=== PATIENT | male | born 1960 | race Caucasian/White ===

== ENCOUNTER 2025-02-20 09:02 | Emergency (ER) | payer MEDICARE, SELFPAY ==
[2025-02-20 09:04] VITALS: BMI 26.6
--- NOTE | 2025-02-20 09:07 | EKG_ITS ---
[facility] Test Date: 2025-02-20 Pat Name: LE GARCIA Department: Room: - Gender: Male [employer]er T[employer]er: : 1960 Requested By: Roxy Booth Order Number: [id number] Reading MD: Roxy Booth Measurements Intervals [place] Rate: 88 P: 34 RI: 151 QRS: 37 QRSD: 93 T: 18 QT: 340 QTc: 412 Interpretive Statements SINUS RHYTHM WITH OCCASIONAL VENTRICULAR PREMATURE COMPLEXES POSSIBLE RIGHT VENTRICULAR CONDUCTION DELAY [RSR (QR) IN V1/V2] NONSPECIFIC T-WAVE ABNORMALITY Compared to ECG 09/19/2023 15:51:21 Ventricular premature complex(es) now present T-wave abnormality still present /store/S0/[id number]/ecg/[id number].pdf
[2025-02-20 09:27] VITALS: BP 126/79; PULSE 88; RESP 21; TEMP 36.6; O2SAT 96
--- NOTE | 2025-02-20 09:44 | EDNOTE_ITS ---
ED Chest Pain RME/HPI General Chief Complaint: Chest Pain Stated Complaint: CXP/PALITATIONS/ LIGHT HEADED SINCE 0800 TODAY Time Seen by Provider: 02/20/25 09:22 Arrival date/time: 02/20/25 09:02 RME / HPI RME / HPI narrative: 64 year old male with history of [employer] in [place] 08/04 widowmaker, s/p cholecystectomy, s/p cholecystectomy 08/2024 in [place], presents to the ED for evaluation of chest pain today. Pain described as sharp in sensation, rating 6/10 in severity. Accompanied by palpitations and feeling light headed. Reports taking Nitro at 08:30 AM today with little improvement. Current medications in Brilinta and Aspirin 81mg. No other associated symptoms reported, [employer] is located in [place]. Related Data Home Medications ?Medication ?Instructions ?Recorded ?Confirmed irbesartan 75 mg tablet (Avapro) 75 mg PO QDAY 2 07/26/21 Previous Rx's ?Medication ?Instructions ?Recorded tamsulosin 0.4 mg capsule (Flomax) 0.4 mg PO QDAY #7 c aps 07/26/21 Allergies Allergy/AdvReac Type Severity Reaction Status Date / Time No Known Allergies Allergy Verified 02/20/25 09:05 Review of Systems Review of Systems Systems Reviewed: All systems reviewed, normal except as documented Past Medical History Past Medical History CARDIAC: Positive Cardiac Disorders and Hypertension Surgical History SURGICAL: Positive Coronary Stent (X1) Social History SMOKING STATUS: Never smoker ED Exam Narrative Physical exam: GENERAL APPEARANCE: alert and oriented x 4, well-developed, well-nourished, no acute distress HEENT: Normocephalic, atraumatic; pupils equal, round, reactive to light; EOMI; mucous membranes pink, moist; oropharynx clear NECK: Supple LUNGS: CTABL; no wheezes, no rales, no rhonchi HEART: Regular rate, regular rhythm; normal S1, S2; no murmurs ABDOMEN: non distended; normal BS; soft, no tenderness, no guarding, no rebound; no masses, no organomegaly, no hernia EXTREMITIES: atraumatic; no edema NEUROLOGIC: awake; alert and oriented x4; cranial nerves II-XII grossly intact; no focal sensory or motor deficits PSYCHIATRIC: appropriate mood and affect SKIN: warm, dry, normal color; no rashes Course Course Course Narrative: Patient remains clinically stable throughout the emergency department visit. We reviewed all the results, analysis, and treatment plans. Patient is amenable to discharge. Strict return precautions were outlined. Quality Measures none Orders Category Date Time Status Certified Paralegal NOW Care 02/20/25 09:49 Active EKG (ED ONLY) *Do not use* NOW Care 02/20/25 09:07 Completed EKG (ED Only) Stat Exams 02/20/25 09:07 Draft XR chest 1V portable Stat Exams 02/20/25 09:49 Completed B-Type Natriuretic Peptide Stat Lab 02/20/25 09:56 Completed CBC Stat Lab 02/20/25 09:56 Completed Comprehensive Metabolic Panel Stat Lab 02/20/25 09:56 Completed Lipase Stat Lab 02/20/25 09:56 Completed Magnesium Stat Lab 02/20/25 09:56 Completed Partial Thromboplastin Time Stat Lab 02/20/25 09:56 Completed Prothrombin Time with INR Stat Lab 02/20/25 09:56 Completed Troponin I Stat Lab 02/20/25 09:56 Completed Troponin I Stat Lab 02/20/25 12:20 Completed Aspirin Chew Med 02/20/25 09:48 Discontinued 324 mg PO X1 ONE Vital Signs Vital signs: Vital Signs Temperature 97.9 F 02/20/25 09:27 Pulse Rate 88 02/20/25 09:27 Respiratory Rate 21 H 02/20/25 09:27 Blood Pressure 126/79 02/20/25 09:27 Pulse Oximetry (%) 96 02/20/25 09:27 Oxygen Delivery Method Room Air 02/20/25 09:27 Pulse ox is 96% on room air which is adequate. Chest Pain MDM Narrative MDM Narrative:: Kindra Lauren am scribing for and in the presence of Dr. Moseley. Patient data External records reviewed:: [facility] previous records Clinical information provided by:: patient Social determinants that could affect healthcare access:: none Patient has the following chronic illnesses:: [employer] in [place] 08/04 widowmaker, s/p cholecystectomy, s/p cholecystectomy 08/2024 in [place] How is presenting disease/condition affected by chronic disease/condition?: exacerbated by Evaluation data The following diagnostics were reviewed and interpreted by me:: lab results, radiology exam(s) and EKG tracing(s) (EKG @ 11:23 AM. Normal sinus rhythm with occasional PVCs, rate 88, no STEMI. ) Lab and/or radiology exams considered but not ordered:: None Interpretation Summary: Ordering Physician: Roxy Moseley MD Date of Service: 02/20/25 Procedure(s): XR chest 1V portable Accession Number(s): [id number] cc: Johann Carrillo MD; Roxy Moseley MD~ EXAMINATION: AP chest single view TECHNIQUE: AP portable upright chest single view Date and time: February 20, 2025, 1004 hours, comparison September 19, 2023 INDICATIONS: Chest pain beginning 2 days ago. FINDINGS: Normal heart size The lungs are clear. The osseous structures are demineralized IMPRESSION: No active disease Dictated By: Johann Carrillo MD Signed By: <Electronically signed by Johann Carrillo MD in [place]> 02/20/25 1022 Medications / Prescriptions Medications or Prescriptions considered but not ordered:: None Medication administrations:: Medication Administration History Discontinued Medications Aspirin (Aspirin 81 Mg Chew) 324 mg PO X1 ONE Stop: 02/20/25 09:49 Last Admin: 02/20/25 10:08 Dose: 324 mg Documented By: ED See above Consultations Consultation(s) initiated? (list below): No Diagnosis Chest Pain Differential Diagnosis: pneumothorax, stable angina, unstable angina pectoris, atypical chest pain, st elevation myocardial infarction, costochondritis and chest pain Most likely diagnosis given after review of the tests above:: Chest pain Admission Indicated Admission indicated?: not indicated Explain why admission is indicated or not indicated:: With no condition needing emergent intervention, there was no indication for admission. Admission Request Was there a request for admission?: No Disposition Plan Disposition Plan: Discharge Discharge Attestation Discharge Attestation: The patient and all family members were given an opportunity to ask questions and understood the discharge instructions. Discharge instructions specifically effects, indications for sooner follow up or return to the emergency department, and the expected course of current diagnosis. Patient condition: Stable Discharge Plan Plan Patient Disposition: HOME (Self Care) Prescriptions/Referrals Prescriptions/Med Rec: No Action irbesartan [Avapro] 75 mg Tablet 75 mg PO QDAY tamsulosin [Flomax] 0.4 mg capsule 0.4 mg PO QDAY Qty: 7 0RF Referrals: SANDI RENE [Other] - In 1 week Problem List Clinical Impression: Chest pain Patient/Caregiver Discharge Instructions Education Materials: ED Chest Pain, Uncertain Cause Print Language: Danish Stand Alone Forms: Carol Award Info., Patient Portal Info Letter
--- NOTE | 2025-02-20 09:49 | XR_ITS ---
EXAMINATION: AP chest single view TECHNIQUE: AP portable upright chest single view Date and time: February 20, 2025, 1004 hours, comparison September 19, 2023 INDICATIONS: Chest pain beginning 2 days ago. FINDINGS: Normal heart size The lungs are clear. The osseous structures are demineralized IMPRESSION: No active disease
[2025-02-20 10:05] VITALS: PULSE 86
--- NOTE | 2025-02-20 10:05 | PC.NURSE ---
Pt. here from home to room 12, pt.'s daughter is bedside, pt. states he drove 800 miles yesterday and yesterday started having chest pain, pt. states he took a Nitro because he thought it would help, pt. states it did not. Pt. states he did drink a lot of coffee yesterday. Pt. states he has had a heart attack.
[2025-02-20] MEDS: ASPIRIN 81 MG CHEW 324 MG PO (10:08)
[2025-02-20 10:19] LABS: Basophils # (Auto) 0.0 Thou/mm3 (0.0-0.2); Basophils % (Auto) 1 % (0-2.5); Eosinophils # (Auto) 0.1 Thou/mm3 (0.0-0.5); Eosinophils % (Auto) 1 % (0-10); Hematocrit 41.7 % (41.0-53.0); Hemoglobin 15.0 g/dL (13.5-16.0); Immature Granulocytes Auto 0.03 Thou/mm3 (0.00-0.00); Lymphocytes # (Auto) 2.3 Thou/mm3 (1.0-4.8); Lymphocytes % (Auto) 31 % (10-50); Mean Corpuscular HGB Conc 36.0 g/dl (31.0-37.0); Mean Corpuscular Hemoglobin 30.2 pg (25.0-35.0); Mean Corpuscular Volume 84 fL (80-100); Monocytes # (Auto) 0.7 Thou/mm3 (0.0-0.8); Monocytes % (Auto) 9 % (0-12); Neutrophils # (Auto) 4.5 Thou/mm3 (1.8-7.7); Neutrophils % (Auto) 59 % (37-80); Nucleated Red Blood Cell # 0.00 Thou/mm3 (0.00-0.00); Nucleated Red Blood Cell % 0 /100 WBC (0); Platelet Count 309 Thou/mm3 (140-440); RDW Standard Deviation 35.8 fL (35.1-43.9); Red Blood Count 4.96 Miln/mm3 (4.50-5.90); White Blood Count 7.6 Thou/mm3 (3.8-10.6)
[2025-02-20 10:33] LABS: INR 1.0 (0.9-1.3); Partial Thromboplastin Time 25.4 Seconds (22.0-36.0); Prothrombin Time 10.7 Seconds (9.0-12.2)
[2025-02-20 10:46] LABS: B-Type Natriuretic Peptide < 20 pg/mL (0-100)
[2025-02-20 10:47] LABS: Alanine Aminotransferase 26 U/L (10-49); Albumin, Serum 4.7 gm/dL (3.4-4.8); Albumin/Globulin Ratio 2.0 (1.2-2.2); Alkaline Phosphatase 84 U/L (46-116); Anion Gap 9 (7-16); Aspartate Amino Transferase 24 U/L (0-34); BUN/Creatinine Ratio 7 Ratio (12-20); Bilirubin,Total 1.4 mg/dL (0.3-1.2); Blood Urea Nitrogen 8 mg/dL (9-23); Calcium 9.4 mg/dL (8.3-10.6); Calcium (Corrected) 9.4 mg/dL (8.5-10.1); Carbon Dioxide 25.2 mMol/L (20.0-31.0); Chloride 106 mMol/L (98-107); Creatinine (Component) 1.1 mg/dL (0.6-1.3); Estimated Creatinine Clearance 62.6 mL/min (>60); Globulin 2.4 gm/dL (2.3-3.5); Glucose 121 mg/dL (74-106); Lipase 32 U/L (12-53); Magnesium 2.0 mg/dL (1.6-2.6); Osmolality,Calculated 278 (275-295); Potassium 3.9 mMol/L (3.4-5.1); Sodium 140 mMol/L (136-145); Total Protein 7.1 gm/dL (5.7-8.2); Troponin I < 0.020 ng/mL (0.0-0.045); eGFR > 60 See Note
[2025-02-20 10:49] VITALS: BP 133/76; PULSE 75; RESP 20; TEMP 36.6; O2SAT 95
[2025-02-20 12:12] VITALS: BP 132/71; PULSE 68; RESP 22; TEMP 36.8; O2SAT 95
[2025-02-20 12:58] LABS: Troponin I < 0.020 ng/mL (0.0-0.045)
[2025-02-20 13:00] VITALS: BP 146/84; PULSE 68; RESP 18; TEMP 36.2; O2SAT 94
[2025-02-20 13:47] VITALS: BP 140/78; PULSE 60; RESP 17; TEMP 36.8; O2SAT 95
--- NOTE | 2025-02-20 13:57 | PC.NURSE ---
Pt. states he was on the road and the hitch broke on his 25 foot trailer, pt. states he thinks the stress caused his chest pain.
== END 2025-02-20 14:00 | disposition home or self-care (01) ==
PROVIDERS: Emergency Provider Emergency Medicine
DX: R07.9 Chest pain, unspecified (principal)
CPT/HCPCS: 36415; 71045; 80053; 83690; 83735; 83880; 84484; 85025; 85610; 85730; 93005; 99283; A9270